=== PATIENT | female | born 1990 | race Caucasian/White ===

== ENCOUNTER 2018-09-24 00:26 | Observation (INO) | payer BC | END 2018-09-24 04:45 | disposition home or self-care (01) | LOC: FLD 00:26 | PROVIDERS: ADMIT Obstetrics & Gynecology; ATTEND Obstetrics & Gynecology | DX: O99.89 Other specified diseases and conditions complicating pregnancy, childbirth and the puerperium (principal); Z3A.36 36 weeks gestation of pregnancy | CPT/HCPCS: 59025; G0378 ==

== ENCOUNTER 2018-10-04 08:45 | Inpatient (IN) | payer BC ==
[2018-10-04] MEDS ORDERED: LR 500 ML IV ONE ×2 (09:06→09:20)
[2018-10-04] MEDS ORDERED: ceFAZolin 2 GM/DEXTROSE 100 ML IV ONE (09:06)
[2018-10-04] MEDS ORDERED: fentaNYL 100 MCG/2 ML INJ IVP PRN (09:08)
[2018-10-04] MEDS ORDERED: CITRIC ACID/SODIUM CITRATE 30 ML UDCUP PO ONE (09:20)
[2018-10-04] MEDS ORDERED: LR 1,000 ML IV SCH ×2 (09:30)
[2018-10-04] MEDS ORDERED: BUPIVACAINE/DEXTROSE 7.5MG/ML 2 ML SPINAL AMP SP ONE (09:33)
[2018-10-04] MEDS ORDERED: morphINE PF 10 MG/10 ML INJ ONE (09:34)
[2018-10-04 09:38] LABS: PLATELET COUNT 198 10^3/uL (150-400)
--- NOTE | 2018-10-04 09:43 | PDANEPAE ---
ANE Past Medical History - Cardiovascular History Hx Hypertension: No Hx Chest Pain: No Hx Coronary Artery / Peripheral Vascular Disease: No - Pulmonary History Hx COPD: No Hx Asthma/Reactive Airway Disease: No Hx Sleep Apnea: No - Neurologic History Hx Cerebrovascular Accident: No - Endocrine History Hx Diabetes: No Hypothyroid: No - Renal History Hx Renal Disorders: No - Liver History Hx Hepatic Disorders: No - Neurological & Psychiatric Hx Hx Neurological and Psychiatric Disorders: No - GI History Hx Gastrointestinal Disorders: Yes Gastrointestinal History Comment: GERD With - Surgical History Prior Surgeries: Prior C section ANE Review of Systems Review of Systems: ANE Patient History - Allergies Allergies/Adverse Reactions: No Known Allergies Allergy (Verified 09/24/18 01:37) ANE Labs/Vital Signs - Labs Result Diagrams: 10/04/18 09:20 ANE Physical Exam - Airway Neck exam: FROM Mallampati Score: Class 2 Mouth exam: normal dental/mouth exam - Pulmonary Pulmonary: no respiratory distress, no rales or rhonchi, clear to auscultation - Cardiovascular Cardiovascular: regular rate and rhythym, no murmur, rub, or gallop - ASA Status ASA Status: II, E ANE Anesthesia Plan Anesthesia Plan: spinal
--- NOTE | 2018-10-04 10:13 | GHP ---
DATE OF ADMISSION: 10/04/2018 ADMITTING DIAGNOSES: 1. Intrauterine at 38 weeks and 2 days. 2. Prior section, declines a trial of labor. 3. Active labor. HISTORY OF PRESENT ILLNESS: The patient is a 28-year-old 3, para 1-0-1- 1 at 38 weeks and 2 days with an estimated due date 10/16/2018 by last menstrual period 01/09/2018, and consistent with an ultrasound at 8 weeks 3 days. The patient presents with complaints of contractions that started around 0600 this morning. They have been progressively getting closer and more intense. She is needing to breathe through her contractions and states pain is 8/10. Denies any leakage of fluid or vaginal bleeding. She states there is good movement. The patient has good care here at [facility] and presented in her 1st trimester. is complicated by a previous for arrest of dilatation at 8 cm. In her last , baby boy was LGA, so patient had an early 1 hour Glucola which was normal at 103. 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 On anatomy scan, there were incomplete views and an estimated weight in 83rd percentile. Followup scan revealed anatomy was complete and a followup growth at 36 weeks showed weight in 84th percentile. The patient developed anemia and is taking iron. The patient did receive Tdap as well as flu vaccine. GBS culture is negative. PAST OB HISTORY: In 2014, she had an SAB at 5 weeks that did not require D and C. In April 2016, she had a viable male infant at 39 weeks, weighing 9 pounds 9 ounces; had arrest of dilatation to 8 cm and had a low transverse . The patient did develop maternal fever, and baby was in the NICU for 2 days. PAST GYNECOLOGIC HISTORY: Menstrual history: Age of menarche 7. Cycles are every 28 days for 4 days. LMP 01/09/2018. Positive test 02/04/2018. The patient does not have a history of abnormal Pap smears and denies any exposure to sexually transmitted diseases. CURRENT MEDICATIONS: Include vitamins, DHA, vitamin D, and iron. ALLERGIES: No known drug allergies. PAST MEDICAL HISTORY: Remarkable for kidney stone at age 15 years of age; migraine headaches with aura, cyclical. Patient with situational anxiety, currently not medicated. PAST SURGICAL HISTORY: in 2015, wisdom teeth extraction, and hysteroscopy with polypectomy in 2015. FAMILY HISTORY: Father with diabetes. Mother with migraine headaches, depression, anxiety. Paternal grandmother, Alzheimer's. Mother, colon cancer diagnosed at age 51. Maternal grandfather, esophageal cancer, 60s. SOCIAL HISTORY: The patient is and lives with her , Miguel Angel, and their son, Arian. She denies any current alcohol, tobacco, illicit drug use. She is a homemaker. REVIEW OF SYSTEMS: 10-point review of systems is negative. Pertinent positives noted in HPI. LABS: First trimester H and H, 13.8 and39.1, platelets 292. Blood type A positive, antibody negative. Early 1-hour Glucola 103. RPR nonreactive. Rubella immune. Hepatitis B surface antigen. HIV negative. Trio screen previously negative. Toxo nonimmune. Varicella immune. Parvovirus nonimmune. UA, urine culture negative. Gonorrhea and chlamydia cultures negative. Single AFP negative. Innatal screen negative. 3rd trimester H and H , 11.7 and33.3, and platelets 209. 1-hour Glucola normal. GBS culture is negative. PHYSICAL EXAMINATION: VITAL SIGNS: On admission, vital signs are stable. The patient is afebrile. GENERAL: The patient is alert and oriented x3. She is in moderate distress secondary to pain with contractions. SKIN: Warm, dry without rash. NEURO: Grossly intact. CARDIOVASCULAR: Regular rate and rhythm. LUNGS: Clear to auscultation bilaterally. ABDOMEN: Gravid, soft, nontender. On exam, she is noted to be 3 cm dilated. EXTREMITIES: Normal to inspection without calf tenderness or edema. ASSESSMENT AND PLAN: The patient is a 28-year-old 3, para 1-0-1-1 at 38 weeks and 2 days with a previous section, declines a trial of labor, who presents in active labor 1. Admit to Labor and Delivery. 2. Will proceed with section at this time secondary to active labor. 3. Surgical consents were on chart and reviewed with patient. 4. The patient understands all risks of surgery and wants to proceed at this time. 5. Antibiotics payroll consultant to OR. 6. Sequential compression devices for deep venous thrombosis prophylaxis. /[id number]/MODL MTDD
[2018-10-04] MEDS ORDERED: PHENYLEPHRINE HCL 100 MCG/ML SYR ONE ×6 (10:36→10:47)
--- NOTE | 2018-10-04 11:13 | POSTANESTH ---
Post Anesthetic Evaluation Cardiovascular Status: Normal, Stable Respiratory Status: Normal, Stable Level of Consciousness/Mental Status: Can Participate in Eval Pain Control: Adequate, Prn Tx Ordered Nausea/Vomiting Control: Adequate, Prn Tx Ordered Complications Possibly Related to Anesthesia: None Noted
[2018-10-04] MEDS ORDERED: NALOXONE HCL 0.4 MG/ML INJ IVP PRN (11:41)
[2018-10-04] MEDS ORDERED: SIMETHICONE 80 MG TAB CHEW PO PRN (11:49)
[2018-10-04] MEDS ORDERED: PROMETHAZINE HCL 25 MG/ML INJ IVP PRN (11:49)
[2018-10-04] MEDS ORDERED: DOCUSATE SODIUM 100 MG CAP PO PRN (11:49)
[2018-10-04] MEDS ORDERED: POLYETHYLENE GLYCOL 3350 17 GM PKT PO PRN (11:51)
[2018-10-04] MEDS ORDERED: MAGNESIUM HYDROXIDE 30 ML UDCUP PO PRN (11:51)
[2018-10-04] MEDS ORDERED: LACTULOSE 20 GM/30 ML UDCUP PO PRN (11:51)
[2018-10-04] MEDS ORDERED: BISACODYL 10 MG SUPP PR PRN (11:51)
--- NOTE | 2018-10-04 11:53 | OBDEL ---
Info Type: Repeat Presentation at Delivery: Vertex L&D Analgesia/Anesthesia Type: Spinal GBS+: No Intrapartum Medications: Generic Name Dose Route Start Last Admin Trade Name Frenaman PRN Reason Stop Dose Admin Fentanyl 50 mcg 10/04/18 09:08 10/04/18 09:41 Sublimaze IVP 10/14/18 09:07 50 mcg Q2HRS PRN Administration Pain, Severe Unable to Take PO Discontinued Medications Generic Name Dose Route Start Last Admin Trade Name Freq PRN Reason Stop Dose Admin Cefazolin Sodium/Dextrose 100 mls @ 200 mls/hr 10/04/18 09:06 10/04/18 09:44 Ancef IV 10/04/18 09:35 100 mls ONCALL ONE Administration Protocol - Infant Care Provider Cafe Assistant/SHANK STAPLER: Shira Garza Indications for Delivery: Spontaneous Labor (previous c/s, declines trial of labor) Operative Report - Delivery Pre-op Diagnoses: IUP @ 38 2/7 weeks with previous c/s who presents in active labor, declines trial of labor Post-op Diagnoses: IUP @ 38 2/7 weeks with previous c/s who presents in active labor, declines trial of labor History of Prior Section: Yes Number of Prior Sections: 1 Indications for Prior Section: Arrest of Dilation Indications for Current Section: Other (Specify) (Active labor) Procedure: Unscheduled Surgeon: Terese Walton Data Processing Consultant: Karla Briscoe Anesthesiologist: Rosalino Flores Complications: None Findings: A viable male infant in direct OP presentation born at 1037 with 8 and 9 Apgars. No nuchal cord. Clear fluid. Delayed cord clamping x 60 sec. Placenta delivered manually intact with 3-vc. Grossly normal appearing uterus, tubes and ovaries. No complications. Specimen(s)/Path: Other (Specify) (none) IV Fluid (ml): 2,000 EBL: 700cc UO: 150 cc clear urine Data KELLEY: 10/16/18 Gestational Age: 38 week(s) and 2 day(s) Gayle Delivery Date: 10/04/18 Delivery Time: 10:37 Sex of Infant: Male ("Saw") Score (1 Min): 8 Score (5 Min): 9 ICD10 Worksheet Patient Problems: Problems Problem Status Onset Previous section Acute Status post repeat low transverse section Acute Uterine contractions during Acute - ICD10 Problem Qualifiers (1) Previous section (2) Status post repeat low transverse section (3) Uterine contractions during
[2018-10-04] MEDS ORDERED: KETOROLAC 30 MG/1 ML SDV ONE (12:41)
[2018-10-04] MEDS: KETOROLAC 30 MG/1 ML SDV IVP SCH ×2 (12:50→18:45)
[2018-10-04] MEDS: CALCIUM CARBONATE 500 MG CHEWABLE TAB PO PRN ×2 (16:38→22:04)
[2018-10-04] MEDS: oxyCODONE IR 5 MG TAB PO PRN (21:23)
[2018-10-04] MEDS: ACETAMINOPHEN 325 MG TAB PO SCH (22:46)
[2018-10-04] MEDS: IBUPROFEN 600 MG TAB PO SCH (22:47)
[2018-10-05] MEDS: KETOROLAC 30 MG/1 ML SDV IVP SCH ×2 (01:21→07:36)
[2018-10-05] MEDS: ACETAMINOPHEN 325 MG TAB PO SCH ×4 (02:59→22:18)
[2018-10-05] MEDS: IBUPROFEN 600 MG TAB PO SCH ×4 (04:59→22:19)
[2018-10-05] MEDS: SENNOSIDES/DOCUSATE SODIUM TAB PO SCH ×3 (05:07→22:19)
--- NOTE | 2018-10-05 10:29 | OBPP ---
Progress Note Assessment/Plan: Assessment: pod#1 s/p RLTCS - hx prior c section presented in active labor A pos/ rubella immune / GBS negative breast feeding routine post care Plan: 10/05/18 10:26 Subjective/ Course: 10/05/18 10:29 patient is doing well. pain is well controlled. normal lochia. denies headache and changes in vision. having some increased cramping. discussed pain medication options. working on breast feeding. patient is tired. Objective: 10/05/18 05:30 Patient ABO/Rh A POSITIVE 10/04/18 09:20 Temp Pulse Resp BP Pulse Ox 36.9 C 93 17 98/67 L 96 10/05/18 08:00 10/05/18 08:00 10/05/18 08:00 10/05/18 08:00 10/05/18 08:00 Physical Exam - Physical Exam Neck: non-tender, full range of motion Respiratory: chest non-tender, lungs clear, normal breath sounds Cardiac/Chest: normal peripheral pulses, regular rate, rhythm Abdomen: normal bowel sounds, non-tender, other (fundus firm and non tender) Extremities: normal range of motion, non-tender, normal inspection, normal capillary refill Skin: normal color, warm/dry Neuro/Psych: no motor/sensory deficits, alert, normal mood/affect, oriented x 3
[2018-10-05] MEDS: oxyCODONE IR 5 MG TAB PO PRN ×4 (10:56→22:17)
--- NOTE | 2018-10-05 12:56 | PDPAINCON ---
Pain Management Consultation Patient referred by : Isabelle - Subjective Pain is: under control Activity: able to ambulate - Objective Technique: spinal opioid Sensory and motor exam: block has resolved, no apparent ill effects Vital signs: stable - Assessment/Plan Assessment/Plan: pain well-controlled, continue current mgmt (Pt doing very well POD 1 s/p CS with intrathecal morphine. No issues. )
[2018-10-05] MEDS: FERRO-SEQUELS 65 MG TAB.ER PO SCH ×2 (14:30→22:19)
[2018-10-06] MEDS: oxyCODONE IR 5 MG TAB PO PRN ×5 (01:56→22:49)
[2018-10-06] MEDS: ACETAMINOPHEN 325 MG TAB PO SCH ×4 (03:59→22:50)
[2018-10-06] MEDS: IBUPROFEN 600 MG TAB PO SCH ×4 (03:59→22:04)
[2018-10-06] MEDS: FERRO-SEQUELS 65 MG TAB.ER PO SCH ×2 (08:36→22:04)
[2018-10-06] MEDS: SENNOSIDES/DOCUSATE SODIUM TAB PO SCH ×2 (08:37→22:05)
--- NOTE | 2018-10-06 10:30 | OBPP ---
Progress Note Assessment/Plan: Assessment: POD 2 s/p RCS at 38+ wks with labor anemia Plan: Routine care, iron daily 10/06/18 10:27 Subjective/ Course: 10/05/18 10:29 patient is doing well. pain is well controlled. normal lochia. denies headache and changes in vision. having some increased cramping. discussed pain medication options. working on breast feeding. patient is tired. 10/06/18 10:27 Pt doing well. kavitha pain with ibu/tyl and one Oxy IR regularly. Baby is BF well. bld is light. urinating fine and kavitha reg diet. Amb well. Bothered by tape skin irritation on left-- will get her bandage to cover Objective: 10/05/18 05:30 Patient ABO/Rh A POSITIVE 10/04/18 09:20 Temp Pulse Resp BP Pulse Ox 36.8 C 96 16 118/77 97 10/06/18 08:00 10/06/18 08:00 10/06/18 08:00 10/06/18 08:00 10/06/18 08:00 Uterine Position/Fundal Height: Umbilicus -1 Uterine Tone: Firm Physical Exam - Physical Exam Abdomen: non-tender (approp post op tenderness), soft, incision (CDI - looks great, small tape irritation on left - no sign of infection) Extremities: non-tender, pedal edema (small edema) Skin: normal color, warm/dry Neuro/Psych: alert, normal mood/affect
[2018-10-07] MEDS: oxyCODONE IR 5 MG TAB PO PRN ×3 (04:01→13:01)
[2018-10-07] MEDS: IBUPROFEN 600 MG TAB PO SCH ×3 (04:01→13:01)
[2018-10-07] MEDS: ACETAMINOPHEN 325 MG TAB PO SCH ×3 (05:08→13:01)
[2018-10-07 09:00] VITALS: BP 119/81
[2018-10-07] MEDS: SENNOSIDES/DOCUSATE SODIUM TAB PO SCH (09:39)
[2018-10-07] MEDS: FERRO-SEQUELS 65 MG TAB.ER PO SCH (09:39)
--- NOTE | 2018-10-07 12:19 | OBGCSDC ---
General Delivery Information - General Info : 3 Para: 2 Abortions: 1 Type: Repeat L&D Analgesia/Anesthesia Type: Spinal Admission Date: 10/04/18 Labs: Patient ABO/Rh A POSITIVE 10/04/18 09:20 Hct 31.6 % (38.0-47.0) L 10/05/18 05:30 - Hospital Course : 10/05/18 10:29 patient is doing well. pain is well controlled. normal lochia. denies headache and changes in vision. having some increased cramping. discussed pain medication options. working on breast feeding. patient is tired. 10/06/18 10:27 Pt doing well. kavitha pain with ibu/tyl and one Oxy IR regularly. Baby is BF well. bld is light. urinating fine and kavitha reg diet. Amb well. Bothered by tape skin irritation on left-- will get her bandage to cover - Delivery Providers Surgeon: Terese Walton Bottom Turning Lathe Tender: Karla Briscoe Anesthesiologist: Rosalino Flores - Delivery Number of Prior Sections: 1 Indications for Current Section: Other (Specify) (Active labor) Surgical Procedures: Unscheduled Intra-op Complications: None EBL: 700cc UO: 150 cc clear urine Data KELLEY: 10/16/18 Gestational Age: 38 week(s) and 5 day(s) Gayle Delivery Date: 10/04/18 Delivery Time: 10:37 Sex of : Male ("Saw") Weight (gm): 3482 kg Score (1 Min): 8 Score (5 Min): 9 Discharge Information - Discharge Information Prescriptions: oxyCODONE IR [Oxycodone Ir (*)] 5 - 10 mg PO Q4HRS PRN #16 tab PRN Reason: Pain, Breakthrough Condition: Good Instruction/Follow Up: See Instruction Sheet, Two Weeks, Four Weeks, Six Weeks
--- NOTE | 2018-10-07 12:19 | OBPP ---
Progress Note Assessment/Plan: Assessment: POD3 s/p RCS - ready for home. Acute blood loss anemia, on chronic/ related - Continue iron supps. Routine cares - f/u 2 4 6 wks. Rh pos, rubella immune. JM Subjective/ Course: 10/05/18 10:29 patient is doing well. pain is well controlled. normal lochia. denies headache and changes in vision. having some increased cramping. discussed pain medication options. working on breast feeding. patient is tired. 10/06/18 10:27 Pt doing well. kavitha pain with ibu/tyl and one Oxy IR regularly. Baby is BF well. bld is light. urinating fine and kavitha reg diet. Amb well. Bothered by tape skin irritation on left-- will get her bandage to cover 10/07/18 13:02 Doing well - ready for home. Worried about pain at L corner of her incision. Pain controlled overall. Objective: 10/05/18 05:30 Patient ABO/Rh A POSITIVE 10/04/18 09:20 Temp Pulse Resp BP Pulse Ox 36.8 C 98 16 119/81 H 90 L 10/07/18 08:00 10/07/18 08:00 10/07/18 08:00 10/07/18 08:00 10/07/18 08:00 Uterine Position/Fundal Height: At Umbilicus Uterine Tone: Firm Physical Exam - Physical Exam Abdomen: incision (CDI, sutured)
== END 2018-10-07 12:30 | disposition home or self-care (01) | DRG 787 ==
LOC: OBSVTOIN 08:45 → FLD 08:45 → FOB 15:20
PROVIDERS: ADMIT Obstetrics & Gynecology; ATTEND Obstetrics & Gynecology
PROC: 10D00Z1 Extraction of Products of Conception, Low, Open Approach (ICD-10-PCS; principal; 2018-10-04)
DX: O34.219 Maternal care for unspecified type scar from previous cesarean delivery (principal); O32.8XX0 Maternal care for other malpresentation of fetus, not applicable or unspecified; O99.13 Other diseases of the blood and blood-forming organs and certain disorders involving the immune mechanism complicating the puerperium; D62 Acute posthemorrhagic anemia; Z87.442 Personal history of urinary calculi; Z3A.38 38 weeks gestation of pregnancy
CPT/HCPCS: J0690; J1885; J2274; J2370; J3010